=== PATIENT | female | born 1945 | race Caucasian/White ===

== ENCOUNTER → 2016-10-25 | Outpatient (CLI) | payer MEDICARE | END | disposition home or self-care (01) | LOC: GMAJ 16:43 | PROVIDERS: ATTEND Family Medicine | DX: E03.9 Hypothyroidism, unspecified (principal) ==

== ENCOUNTER → 2016-12-24 | Outpatient (CLI) | payer MEDICARE | END | disposition home or self-care (01) | LOC: GMAJ 15:17 | PROVIDERS: ATTEND Family Medicine | DX: M79.1 Myalgia (principal); E03.9 Hypothyroidism, unspecified; R30.0 Dysuria ==

== ENCOUNTER → 2016-12-31 | Outpatient (CLI) | payer MEDICARE | END | disposition home or self-care (01) | LOC: GMA 17:14 | PROVIDERS: ATTEND Nurse Practitioner Acute Care | DX: N30.00 Acute cystitis without hematuria (principal) ==

== ENCOUNTER → 2017-02-20 | Outpatient (CLI) | payer MEDICARE | END | disposition home or self-care (01) | LOC: GMA 16:29 | PROVIDERS: ATTEND Nurse Practitioner Family | DX: N30.00 Acute cystitis without hematuria (principal) ==

== ENCOUNTER → 2017-07-30 | Outpatient (CLI) | payer MEDICARE | LOC: GMAJ 14:15 | PROVIDERS: ATTEND Family Medicine | DX: E03.9 Hypothyroidism, unspecified (principal) ==

== ENCOUNTER → 2018-02-21 | Outpatient (CLI) | payer MEDICARE ==
--- NOTE | 2018-02-22 13:17 | CT ---
EXAM DESCRIPTION: Abdomen/Pelvis w/Contrast CLINICAL HISTORY: 73 years Female, LLQ ABD PAIN. R10.814 COMPARISON: None available. TECHNIQUE: Contiguous 3 mm axial images were obtained from lung bases to the level of proximal femora after the administration of intravenous and oral contrast. Sagittal and coronal reconstructions were reviewed. FINDINGS: Imaged lower thorax appears normal. The liver, gallbladder, pancreas and spleen appear normal. Bilateral adrenal glands and kidneys appear normal. The stomach appears normal. The visualized small and large bowel loops demonstrate no gross abnormality. The urinary bladder is collapsed with intraluminal air secondary to Huertas catheterization. The uterus is surgically absent. Small amount of hematoma and free intraperitoneal fluid is identified consistent with recent surgery. Large amount of free intraperitoneal air is also noted, representing postsurgical changes. Large hematoma is identified and left anterior abdominal wall musculature. Multiple droplets of air are also noted. No evidence of active extravasation. The abdominal aorta and inferior vena cava appear normal. No abnormally enlarged lymph nodes are identified. The visualized bones appear normal. IMPRESSION: 1. Large left anterior abdominal wall intermuscular hematoma and air droplets. No evidence of active extravasation. 2. Small amount of hemorrhage, intraperitoneal fluid and large amount of intraperitoneal air are noted, consistent with recent surgery. This exam was performed according to our departmental dose-optimization program, which includes automated exposure control, adjustment of the mA and/or kV according to patient size and/or use of iterative reconstruction technique. Electronically signed by: Roe Morris MD 02/22/2018 1:16 PM [facility]
== END ==
LOC: CT 09:00
PROVIDERS: ATTEND Family Medicine
DX: R10.814 Left lower quadrant abdominal tenderness (principal); S30.1XXA Contusion of abdominal wall, initial encounter

== ENCOUNTER 2018-06-23 05:49 | Day surgery (SDC) | payer MEDICARE ==
[2018-06-23] MEDS ORDERED: PROPARACAINE 0.5% OPHTH SOL 15 ML BTTL ONE (08:22)
[2018-06-23] MEDS ORDERED: MOXIFLOXACIN HCL (OPHTH) 1 DROP DROPS ONE (08:22)
[2018-06-23] MEDS ORDERED: TROP 1%/CYCLOPEN 1%/PHENYL 2% DROPS ONE (08:22)
[2018-06-23] MEDS ORDERED: PROPARACAINE 0.5% OPHTH SOL 15 ML BTTL RIGHT_EYE ONE (10:24)
[2018-06-23] MEDS ORDERED: LIDOCAINE 1% 2 ML VIAL INJ ONE (10:37)
[2018-06-23] MEDS ORDERED: DEXAMETHASONE 0.1% OPHTH SOL 1 DROP RIGHT_EYE ONE (10:37)
[2018-06-23] MEDS ORDERED: MOXIFLOXACIN HCL (OPHTH) 1 DROP DROPS RIGHT_EYE ONE (10:37)
[2018-06-23] MEDS ORDERED: BRIMONIDINE 0.2% OPHTH DROPS RIGHT_EYE ONE (10:38)
[2018-06-23] MEDS ORDERED: TOBRAMYCIN SULF 0.3 % OPHT SOL 1 DROP RIGHT_EYE ONE (10:38)
[2018-06-23] MEDS ORDERED: MIDAZOLAM INJ 2 MG/2 ML VIAL ONE (12:21)
== END 2018-06-23 11:23 | disposition home health service (06) ==
LOC: AMB 05:49
PROVIDERS: ATTEND Ophthalmology
DX: H25.11 Age-related nuclear cataract, right eye (principal); I10 Essential (primary) hypertension; K21.9 Gastro-esophageal reflux disease without esophagitis; Z88.5 Allergy status to narcotic agent; Z79.899 Other long term (current) drug therapy
CPT/HCPCS: 00142; 66984; J2250

== ENCOUNTER 2018-07-07 06:05 | Day surgery (SDC) | payer MEDICARE, OTHER ==
[2018-07-07] MEDS ORDERED: PROPARACAINE 0.5% OPHTH SOL 15 ML BTTL ONE (12:06)
[2018-07-07] MEDS ORDERED: MOXIFLOXACIN HCL (OPHTH) 1 DROP DROPS ONE (12:06)
[2018-07-07] MEDS ORDERED: TROP 1%/CYCLOPEN 1%/PHENYL 2% DROPS ONE (12:06)
[2018-07-07] MEDS ORDERED: MIDAZOLAM INJ 2 MG/2 ML VIAL ONE ×2 (13:08→13:19)
[2018-07-07] MEDS ORDERED: PROPARACAINE 0.5% OPHTH SOL 15 ML BTTL LEFT_EYE ONE (13:18)
[2018-07-07] MEDS ORDERED: LIDOCAINE 1% 2 ML VIAL INJ ONE (13:23)
[2018-07-07] MEDS ORDERED: DEXAMETHASONE 0.1% OPHTH SOL 1 DROP LEFT_EYE ONE ×2 (13:31→13:36)
[2018-07-07] MEDS ORDERED: BRIMONIDINE 0.2% OPHTH DROPS LEFT_EYE ONE ×2 (13:31→13:36)
[2018-07-07] MEDS ORDERED: TOBRAMYCIN SULF 0.3 % OPHT SOL 1 DROP LEFT_EYE ONE ×2 (13:31→13:36)
[2018-07-07] MEDS ORDERED: MOXIFLOXACIN HCL (OPHTH) 1 DROP DROPS LEFT_EYE ONE ×2 (13:31→13:35)
== END 2018-07-07 14:25 | disposition home or self-care (01) ==
LOC: AMB 06:05
PROVIDERS: ATTEND Ophthalmology
DX: H25.12 Age-related nuclear cataract, left eye (principal); I10 Essential (primary) hypertension; Z88.5 Allergy status to narcotic agent; Z79.899 Other long term (current) drug therapy
CPT/HCPCS: 00142; 66984; J2250

== ENCOUNTER → 2019-05-26 | Outpatient (CLI) | payer MEDICARE, OTHER | DX: K21.9 Gastro-esophageal reflux disease without esophagitis (principal); K44.9 Diaphragmatic hernia without obstruction or gangrene; K22.4 Dyskinesia of esophagus ==

== ENCOUNTER 2019-11-15 13:00 | Emergency (ER) | payer MEDICARE, OTHER ==
[2019-11-15 13:26] VITALS: TEMP 97.7
--- NOTE | 2019-11-15 13:46 | CT ---
EXAM: CT head CLINICAL INDICATION: Patient fell, trauma, pain COMPARISON: There is no previous study for comparison. TECHNIQUE: The CT scan was done using contiguous axial 2.5 mm sections through the brain. This exam was performed according to our departmental dose-optimization program, which includes automated exposure control, adjustment of the mA and/or kV according to patient size and/or use of iterative reconstruction technique. FINDINGS: There is no midline shift, mass effect, or extraaxial fluid collection. There is no evidence of acute intracranial hemorrhage, mass lesion, or cerebral edema. The ventricles and cortical sulci are normal for the patient's age. Bone window images reveal no evidence of a skull fracture. IMPRESSION: No evidence of an acute intracranial process. Electronically signed by: Srinivas Huston MD 11/15/2019 1:45 PM CDT
[2019-11-15] MEDS ORDERED: LIDOCAINE 1% W/ EPINEPHRINE 20 ML VIAL INJ ONE (13:52)
--- NOTE | 2019-11-15 13:56 | CT ---
EXAM: CT cervical spine CLINICAL INDICATION: Trauma, pain COMPARISON: There is no previous study for comparison. TECHNIQUE: CT scan of the cervical spine was done using contiguous axial 3mm sections through the cervical spine with sagittal and coronal reconstructions. This exam was performed according to our departmental dose-optimization program, which includes automated exposure control, adjustment of the mA and/or kV according to patient size and/or use of iterative reconstruction technique. Findings: There is no fracture or subluxation. The prevertebral soft tissues are normal. The bilateral facet joint alignment is normal. Moderate multilevel degenerative disc disease is noted. The osseous structures otherwise appear intact and unremarkable. IMPRESSION: No evidence of acute traumatic injury. Electronically signed by: Srinivas Huston MD 11/15/2019 1:55 PM CDT
[2019-11-15] MEDS ORDERED: TETANUS,DIPHTHERIA,PERTUSSIS 1 EA SYG IM ONE (14:37)
[2019-11-15] MEDS ORDERED: SULFA/TRIMETH 800/160 (DS) TAB 1 EA TAB PO ONE (14:37)
--- NOTE | 2019-11-15 14:41 | ED.PDOC ---
History of Present Illness - General Chief Complaint: Trauma Stated Complaint: Fall with head laceration Time Seen by Provider: 11/15/19 13:11 Source: patient Exam Limitations: no limitations - History of Present Illness Initial Comments: The patient is a 74-year-old female that presented to the emergency room secondary to sustaining a 1 inch horizontal laceration to the center of the forehead after having tripped and fallen while trying to package pick up the cat in the middle of the night. No loss of consciousness. No focal neurological deficits. No neck pain. No altered mental status. No other injuries. The patient had butterflied the wound. Wound has been sustained about 8 to 10 hours prior. Timing/Duration: other Severity: moderate Improving Factors: nothing Worsening Factors: nothing Associated Symptoms: denies symptoms Allergies/Adverse Reactions: Allergies NO KNOWN ALLERGY Allergy (Verified 11/15/19 13:23) Home Medications: Ambulatory Orders Sulfa/Trimeth 800/160 (Ds) Tab [Bactrim DS Tab] 1 ea PO BID #5 tab 11/15/19 Review of Systems - Review of Systems Constitutional: States: no symptoms reported EENTM: States: no symptoms reported Respiratory: States: no symptoms reported Cardiology: States: no symptoms reported Gastrointestinal/Abdominal: States: no symptoms reported Genitourinary: States: no symptoms reported Musculoskeletal: States: no symptoms reported Skin: States: see HPI Neurological: States: no symptoms reported Endocrine: States: no symptoms reported All other Systems: No Change from Baseline Past Medical History (General) - Patient Medical History Hx Stroke: No Hx of COPD: No Hx Cardiac Disorders: No Hx Congestive Heart Failure: No Hx Hypertension: Yes Hx Thyroid Disease: Yes Hx Diabetes: No Hx Gastroesophageal Reflux: Yes Hx Cancer: No Surgical History: cholecystectomy, Hysterectomy - Vaccination History Hx Tetanus, Diphtheria Vaccination: No Hx Influenza Vaccination: Yes Hx Pneumococcal Vaccination: Yes - Social History Hx Tobacco Use: No Hx Alcohol Use: Yes Hx Substance Use: No Hx Substance Use Treatment: No Hx Depression: No - Female History Patient is a Female of Child Bearing Age (10 -59 yrs old): No Patient : No Family Medical History - Family History Mother Family History: No Known Living Status: Physical Exam - Physical Exam General Appearance: Alert, Comfortable, No apparent distress Eye Exam: bilateral normal Ears, Nose, Throat: hearing grossly normal, normal pharynx Neck: full range of motion, supple Respiratory: no respiratory distress, no accessory muscle use Cardiovascular/Chest: normal peripheral pulses, no edema Peripheral Pulses: radial,right: 2+, radial,left: 2+, dorsalis pedis,right: 2+, dorsalis pedis,left: 2+ Rectal Exam: deferred Extremity: normal range of motion, no pedal edema, no calf tenderness, normal capillary refill 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 Comments: Vital Signs - 24 hr 11/15/19 13:05 Temperature 97.7 F Pulse Rate [ 73 Pulse ox] Respiratory 18 Rate Blood Pressure 130/97 [R arm] O2 Sat by Pulse 97 Oximetry Progress - Progress Progress: 11/15/19 14:39 The patient is a 74-year-old female presented emergency room secondary to having sustained a 1 inch laceration to the center of the forehead around the middle of the night secondary to an accidental fall. Head CT and cervical spine CT are negative for any acute pathology otherwise. The wound was sutured up after cleaning with 4 simple sutures of 4-0 Ethilon. These need to be removed in about a week. She will be placed on 3 days of prophylactic Bactrim. She did receive a tetanus shot today. Keep routine follow-up with primary care doctor. ER warnings are given. Procedure note: Risk and benefits were explained prior. Wound is cleaned with hydrogen peroxide. Xylocaine with epinephrine x2 cc was used as local anesthetic. 4 simple sutures of 4-0 Ethilon were used for reapproximation. Estimated blood loss is less than 5 cc. Patient tolerated this well. Sutures need to be removed in 7 days. aleena baker 747 - Results/Orders Results/Orders: CT scans of the head and cervical spine without IV contrast showed no evidence of acute pathology aside from the laceration. There are chronic changes present. See report for details. - EKG/XRAY/CT CT Ordered: Yes Departure - Departure Clinical Impression: Forehead laceration Qualifiers: Encounter type: initial encounter Qualified Code(s): S01.81XA - Laceration without foreign body of other part of head, initial encounter Fall at home Qualifiers: Encounter type: initial encounter Qualified Code(s): W19.XXXA - Unspecified fall, initial encounter; Y92.009 - Unspecified place in unspecified non- institutional (private) residence as the place of occurrence of the external cause Disposition: Discharge to Home or Self Care Condition: Fair Departure Forms: ED Discharge - Pt. Copy, Patient Portal Self Enrollment Instructions: DI for Trauma, Laceration Repair Diet: regular diet Activity: increase activity as tolerated Referrals: Josh Nazario MD [Primary Care Provider] - 1-2 Weeks Prescriptions: Sulfa/Trimeth 800/160 (Ds) Tab [Bactrim DS Tab] 1 ea PO BID #5 tab Home Medications: Ambulatory Orders Sulfa/Trimeth 800/160 (Ds) Tab [Bactrim DS Tab] 1 ea PO BID #5 tab 11/15/19 Additional Instructions: The patient is a 74-year-old female presented emergency room secondary to having sustained a 1 inch laceration to the center of the forehead around the middle of the night secondary to an accidental fall. Head CT and cervical spine CT are negative for any acute pathology otherwise. The wound was sutured up after cleaning with 4 simple sutures of 4-0 Ethilon. These need to be removed in about a week. She will be placed on 3 days of prophylactic Bactrim. She did receive a tetanus shot today. Keep routine follow-up with primary care doctor. ER warnings are given.
[2019-11-15 15:10] VITALS: BP 136/78; O2SAT 96
== END 2019-11-15 15:01 | disposition home or self-care (01) ==
LOC: ER 13:00
DX: S01.81XA Laceration without foreign body of other part of head, initial encounter (principal); M50.30 Other cervical disc degeneration, unspecified cervical region; K21.9 Gastro-esophageal reflux disease without esophagitis; I10 Essential (primary) hypertension; E07.9 Disorder of thyroid, unspecified; W01.0XXA Fall on same level from slipping, tripping and stumbling without subsequent striking against object, initial encounter; Y92.9 Unspecified place or not applicable; Y93.89 Activity, other specified

== ENCOUNTER 2020-02-04 10:30 | Emergency (ER) | payer MEDICARE, OTHER ==
[2020-02-04] MEDS ORDERED: PROMETHAZINE HCL INJ 25 MG in SODIUM CHLORIDE 0.9% 50ML 50 ML IVPB ONE (11:49)
[2020-02-04] MEDS ORDERED: SODIUM CHLORIDE 0.9% 1000ML 1,000 ML IVS ONE (11:49)
[2020-02-04] MEDS ORDERED: PENICILLIN BENZATHINE 1.2 MU 1.2 MU/2 ML SYG IM ONE (11:50)
[2020-02-04] MEDS ORDERED: SUCRALFATE 1 GM/10 ML 1 GM UD PO ONE (11:50)
--- NOTE | 2020-02-04 12:21 | RAD ---
1 radiographic chest. 1 Radiographs of the Abdomen. Indication: nv Comparison: None. Impression: Heart size normal. Thoracic aorta tortuous. Emphysema suspected. Otherwise, lungs clear. No free air identified under the diaphragm. Cholecystomy clips. Multiple surgical clips in the right lower quadrant. Bowel gas pattern nonspecific. No abnormal calcifications. No acute osseous abnormality. Electronically signed by: Ajit Cohen MD 02/04/2020 12:19 PM [facility]
[2020-02-04 12:46] VITALS: O2SAT 96
--- NOTE | 2020-02-04 13:37 | ED.PDOC ---
History of Present Illness - General Chief Complaint: Respiratory Problem Stated Complaint: n/v, strep positive, pending covid test Time Seen by Provider: 02/04/20 11:49 Source: patient Exam Limitations: no limitations - History of Present Illness Initial Comments: The patient is a 75-year-old female the patient is a 75-year-old female presented emergency room secondary to several days of nausea vomiting. She does have chronic diarrhea. No real point abdominal pain. No fever. She has had a mild sore throat. She did test positive for strep throat with her primary care doctor in a drive-through this morning. She also tested negative for coronavirus with her primary care this morning. No rebound or peritoneal signs. No blood in the stool or vomitus. No anjelica bile. No significant abdominal pain to palpation. No guarding. Timing/Duration: other - 3 days Severity: moderate Improving Factors: nothing Worsening Factors: eating Associated Symptoms: headaches, malaise, nausea/vomiting Allergies/Adverse Reactions: Allergies NO KNOWN ALLERGY Allergy (Verified 11/15/19 13:23) Home Medications: Ambulatory Orders Sulfa/Trimeth 800/160 (Ds) Tab [Bactrim DS Tab] 1 ea PO BID #5 tab 11/15/19 Famotidine 20 mg PO DAILY #30 tab 02/04/20 Ondansetron Odt [Zofran ODT] 4 mg PO Q8HR PRN #5 tab 02/04/20 Sucralfate Tab [Carafate Tab] 1 gm PO QID #60 tab 02/04/20 Review of Systems - Review of Systems Constitutional: States: malaise EENTM: States: no symptoms reported Respiratory: States: no symptoms reported Cardiology: States: no symptoms reported Gastrointestinal/Abdominal: States: diarrhea - Chronic, nausea, vomiting Genitourinary: States: no symptoms reported Musculoskeletal: States: no symptoms reported Skin: States: no symptoms reported Neurological: States: headache Endocrine: States: no symptoms reported All other Systems: No Change from Baseline Past Medical History (General) - Patient Medical History Hx Stroke: No Hx of COPD: No Hx Cardiac Disorders: No Hx Congestive Heart Failure: No Hx Hypertension: Yes Hx Thyroid Disease: Yes Hx Diabetes: No Hx Gastroesophageal Reflux: Yes Hx Cancer: No - Vaccination History Hx Tetanus, Diphtheria Vaccination: No Hx Influenza Vaccination: Yes Hx Pneumococcal Vaccination: Yes - Social History Hx Tobacco Use: No Hx Alcohol Use: Yes Hx Substance Use: No Hx Substance Use Treatment: No Hx Depression: No - Female History Patient : No Family Medical History - Family History Mother Family History: No Known Living Status: Physical Exam - Physical Exam General Appearance: Alert, Comfortable, No apparent distress Eye Exam: bilateral normal Ears, Nose, Throat: hearing grossly normal, pharyngeal erythema Neck: full range of motion, supple Respiratory: lungs clear, normal breath sounds, no respiratory distress, no accessory muscle use Cardiovascular/Chest: normal peripheral pulses, regular rate, rhythm, no edema Peripheral Pulses: radial,right: 2+, radial,left: 2+ Gastrointestinal/Abdominal: non tender, soft Rectal Exam: deferred Back Exam: no CVA tenderness, no vertebral tenderness Extremity: normal range of motion, non-tender, normal inspection, no pedal edema, normal capillary refill Neurologic: clarity developer II-XII nml as tested, alert, normal mood/affect, oriented x 3 Skin Exam: normal color Comments: Vital Signs - 24 hr 02/04/20 02/04/20 02/04/20 11:25 12:00 12:32 Temperature 97.6 F Pulse Rate [ 78 74 72 right brachial] Respiratory 20 20 16 Rate Blood Pressure 115/65 112/74 118/71 [right brachial ] O2 Sat by Pulse 96 92 L 96 Oximetry Progress - Progress Progress: 02/04/20 13:37 The patient is a 75-year-old female presented emergency room secondary to what appears to be an acute gastroenteritis possibly due to the strep throat infection. She received a dose of Bicillin LA here. She will be written for Zofran along with Pepcid and Carafate for the next week for as needed use. She is to keep her self well-hydrated and maintain a bland diet. ER warnings are given for any worsening. Keep routine follow-up with primary care doctor otherwise. aleena baker 747 - Results/Orders Results/Orders: Acute abdominal series appears benign. Laboratory Results - last 24 hr 02/04/20 02/04/20 11:55 11:55 WBC 8.8 RBC 4.47 Hgb 14.2 Hct 41.0 MCV 91.9 MCH 31.8 H MCHC 34.7 RDW 13.1 Plt Count 268 MPV 7.1 L Absolute Neuts (auto) 7.30 H Absolute Lymphs (auto) 0.90 L Absolute Monos (auto) 0.50 Absolute Eos (auto) 0.10 Absolute Basos (auto) 0.00 Neutrophils % 82.8 H Lymphocytes % 10.1 L Monocytes % 5.9 Eosinophils % 0.8 L Basophils % 0.4 Sodium 140 Potassium 3.7 Chloride 105 Carbon Dioxide 25 Anion Gap 13.7 BUN 12 Creatinine 0.80 BUN/Creatinine Ratio 15.0 Random Glucose 114 H Serum Osmolality 280.0 Calcium 10.1 Magnesium 2.0 Total Bilirubin 0.7 AST 32 ALT 32 Alkaline Phosphatase 62 Creatine Kinase 78 CK-MB (CK-2) 2.8 CK-MB (CK-2) % Not Reportable Troponin I < 0.02 B-Natriuretic Peptide < 15.0 Serum Total Protein 7.2 Albumin 3.9 Globulin 3.3 Albumin/Globulin Ratio 1.2 Amylase 91 Lipase 35 Departure - Departure Clinical Impression: Strep throat, Acute gastroenteritis, Mild dehydration Disposition: Discharge to Home or Self Care Condition: Fair Departure Forms: ED Discharge - Pt. Copy, Patient Portal Self Enrollment Instructions: Viral Gastroenteritis, Sore Throat, Adult (DC) Diet: bland diet Activity: increase activity as tolerated Referrals: Josh Nazario MD [Primary Care Provider] - 1-2 Weeks Prescriptions: Ondansetron Odt [Zofran ODT] 4 mg PO Q8HR PRN #5 tab PRN Reason: Nausea--Moderate Sucralfate Tab [Carafate Tab] 1 gm PO QID #60 tab Famotidine 20 mg PO DAILY #30 tab Home Medications: Ambulatory Orders Sulfa/Trimeth 800/160 (Ds) Tab [Bactrim DS Tab] 1 ea PO BID #5 tab 11/15/19 Famotidine 20 mg PO DAILY #30 tab 02/04/20 Ondansetron Odt [Zofran ODT] 4 mg PO Q8HR PRN #5 tab 02/04/20 Sucralfate Tab [Carafate Tab] 1 gm PO QID #60 tab 02/04/20 Additional Instructions: The patient is a 75-year-old female presented emergency room secondary to what appears to be an acute gastroenteritis possibly due to the strep throat infection. She received a dose of Bicillin LA here. She will be written for Zofran along with Pepcid and Carafate for the next week for as needed use. She is to keep her self well-hydrated and maintain a bland diet. ER warnings are given for any worsening. Keep routine follow-up with primary care doctor otherwise.
[2020-02-04 13:54] VITALS: BP 118/70; TEMP 97.8
== END 2020-02-04 13:45 | disposition home or self-care (01) ==
LOC: ER 10:30
DX: J02.0 Streptococcal pharyngitis (principal); K52.9 Noninfective gastroenteritis and colitis, unspecified; E86.0 Dehydration; K21.9 Gastro-esophageal reflux disease without esophagitis; E07.9 Disorder of thyroid, unspecified; I10 Essential (primary) hypertension; Z79.899 Other long term (current) drug therapy
CPT/HCPCS: 36415; 74019; 80053; 82150; 82550; 82553; 83690; 83735; 83880; 84484; 85025; A4216; J0561; J2550; J7030

== ENCOUNTER → 2020-02-10 | Outpatient (CLI) | payer MEDICARE, OTHER | LOC: GMAJ 10:42 | PROVIDERS: ATTEND Family Medicine | DX: E03.9 Hypothyroidism, unspecified (principal); I10 Essential (primary) hypertension; E78.2 Mixed hyperlipidemia ==